=== PATIENT | male | born 1990 | race Caucasian/White ===

== ENCOUNTER 2016-11-22 08:55 | Emergency (ER) | payer OTHER ==
[~2016-11-22] VITALS: Ht 170.2 cm; Wt 81.6 kg
[2016-11-22 12:22] VITALS: BP 119/69
== END 2016-11-22 12:22 | disposition home or self-care (01) ==
LOC: ED 08:55
DX: S29.012A Strain of muscle and tendon of back wall of thorax, initial encounter (principal); F12.90 Cannabis use, unspecified, uncomplicated; X58.XXXA Exposure to other specified factors, initial encounter; Y93.89 Activity, other specified; Y99.8 Other external cause status; Y92.89 Other specified places as the place of occurrence of the external cause
CPT/HCPCS: J1100; J1885

== ENCOUNTER 2017-03-31 14:00 | Emergency (ER) | payer OTHER ==
[~2017-03-31] VITALS: Ht 177.8 cm; Wt 76.2 kg
[2017-03-31 14:11] VITALS: Ht 177.8 cm; Wt 76.2 kg
[2017-03-31 16:42] VITALS: BP 134/70
== END 2017-03-31 16:42 | disposition home or self-care (01) ==
LOC: ED 14:00
DX: M54.5 Low back pain (principal)
CPT/HCPCS: J1885